=== PATIENT | male | born 1980 | race African-American/Black ===

== ENCOUNTER 2018-03-06 10:48 | Emergency (ER) | payer OTHER ==
--- NOTE | 2018-03-06 11:52 | RAD ---
LEFT SHOULDER 2 VIEWS: Date: 03/06/18 HISTORY: 38-year-old male with history of left shoulder pain for 2 days, radiating to chest. This is a 2 view examination, including AP and scapular Y view. FINDINGS: There is evidence for anterior subcoracoid dislocation of the left glenohumeral joint. IMPRESSION: Anterior subcoracoid dislocation of left glenohumeral joint. There could be a small chip-type fractur e off the inferior glenoid, which could suggest an associated Bankart injury, although this area over lies the humeral head and is somewhat partially obscured. POS: [facility]
[2018-03-06] MEDS ORDERED: Ondansetron HCl/PF 4 MG/2 ML Vial ONE (12:13)
[2018-03-06] MEDS ORDERED: Morphine 4 MG/ML VIAL ONE (12:15)
--- NOTE | 2018-03-06 13:45 | RAD ---
LEFT SHOULDER TWO VIEWS: INDICATIONS: Post reduction. COMPARISON: Exam from earlier same day. FINDINGS: Interval restored alignment of the left shoulder. There remains mild osseous irregularity of the sca pular glenoid. IMPRESSION: 1. Restored alignment of the left shoulder. 2. Osseous irregularity at the inferior scapula in the glenoid, indicating a minimally displaced fra cture, likely related to the recent dislocation. As necessary, CT examination may be performed for f urther evaluation. POS: [facility]
== END 2018-03-06 14:28 | disposition home or self-care (01) ==
LOC: ERS 10:48
DX: S43.015A Anterior dislocation of left humerus, initial encounter (principal); F31.9 Bipolar disorder, unspecified; F17.210 Nicotine dependence, cigarettes, uncomplicated; Z79.899 Other long term (current) drug therapy; X58.XXXA Exposure to other specified factors, initial encounter
CPT/HCPCS: 23650; 93005; 96374; 96375; J2270; J2405

== ENCOUNTER 2022-12-26 22:31 | Inpatient (IN) | payer OTHER ==
[2022-12-26] MEDS ORDERED: Midazolam HCl 5 mg/ml Vial ONE (22:34)
[2022-12-27 00:09] LABS: #Eosinphils 0.2 thou/uL (0.0-0.7); #Monocytes 0.7 thou/uL (0.11-0.59); #Neutrophils 5.4 thou/uL (1.40-6.50); %Basophils 0.3 % (0.0-1.0); %Eosinophils 2.9 % (0.0-10.0); %Lymphocytes 8.8 % (21.0-51.0); %Monocytes 9.5 % (0.0-10.0); %Neutrophils 78.2 % (42.0-75.0); Hematocrit 41.6 % (42.0-52.0); Hemoglobin 14.1 g/dL (14.0-18.0); Mean Corpuscular HGB CONC 33.9 g/dL (32.0-36.0); Mean Corpuscular Hemoglobin 33.7 pg (27.0-31.0); Mean Corpuscular Volume 99.5 fl (78.0-98.0); Mean Platelet Volume 10.3 fL (7.4-10.4); RBC Distribution Width 11.9 % (11.5-14.5); Red Blood Cell (RBC) Count 4.18 mill/uL (4.70-6.10); White Blood Cell (WBC) Count 6.9 10x3/uL (4.8-10.8)
[2022-12-27 00:20] LABS: Platelet Count 100 10x3/uL (130-400)
[2022-12-27] MEDS ORDERED: LORazepam 2 MG/ML SYR.(CARPUJECT) ONE (00:36)
[2022-12-27 00:38] LABS: ALT (SGPT) 17 U/L (8-55); AST (SGOT) 24 U/L (5-34); Albumin 3.6 g/dL (3.5-5.0); Alkaline Phosphatase 79 U/L (40-110); Anion Gap 18 mmol/L (10-20); BUN (Urea Nitrogen) 8 mg/dL (8.9-20.6); Bilirubin, Total 0.4 mg/dL (0.2-1.2); Calc. Creatinine Clearance 0 mL/min (70-130); Calcium 8.8 mg/dL (7.8-10.44); Carbon Dioxide 15 mmol/L (22-29); Chloride 106 mmol/L (98-107); Estimated GFR 105; Globulin 3.4 g/dL (2.4-3.5); Glucose 93 mg/dL (70-105); Magnesium 1.9 mg/dL (1.6-2.6); Potassium 3.9 mmol/L (3.5-5.1); Sodium 135 mmol/L (136-145)
[2022-12-27 00:51] LABS: Burr Cells SLIGHT = 2-5 cells HPF (0-1); Macrocytosis SLIGHT = 6-15 cells HPF (0-5); Ovalocytes SLIGHT = 2-5 cells HPF (0-1); Platelet Adequacy Comment Platelets Decreased; Tear Drops SLIGHT = 2-5 cells HPF (0-1)
[2022-12-27 01:42] LABS: Bacteria/HPF None Seen HPF (None Seen); Bilirubin Negative (Negative); Blood, Urine Trace (Negative); CAUTI Indications for Culture Alt mental st,lethar; Clarity Clear (Clear); Glucose, Urine (Dipstick) Normal (Negative); Ketone, Urine Trace mg/dL (Negative); Leukocyte Negative Leu/uL (Negative); Nitrite Negative (Negative); Protein, Urine (Dipstick) 30 mg/dL (Neg-Trace); RBC/HPF 0-3 HPF (0-3); Specific Gravity, Urine 1.016 (1.002-1.036); Squamous Epithelial 0-3 HPF (0-3); Urobilinogen Normal mg/dL (Less than 2); WBC/HPF 0-3 HPF (0-3)
[2022-12-27 01:43] LABS: Amphetamine Not Detected (NotDetected); Barbiturates Screen Not Detected (NotDetected); Benzodiazepine Screen Not Detected (NotDetected); Cocaine Metabolite Screen Detected (NotDetected); Methadone Not Detected (NotDetected); Methamphetamine Not Detected (NotDetected); Opiate Screen Not Detected (NotDetected); Oxycodone Screen Not Detected (NotDetected); Phencyclidine (PCP) Not Detected (NotDetected); THC/Cannabinoid Screen Detected (NotDetected); Tricyclic Screen Not Detected (NotDetected); Urine Culture Reflex No No
[2022-12-27] MEDS ORDERED: Acetaminophen 325 MG TAB PO PRN (07:31)
[2022-12-27] MEDS ORDERED: Lorazepam 2 MG/ML VIAL SLOW IVP PRN (07:31)
[2022-12-27] MEDS ORDERED: Ondansetron PF 4 MG/2 ML Vial IVP PRN (07:31)
[2022-12-27] MEDS ORDERED: Senokot S 8.6-50 MG TAB PO PRN (07:31)
[2022-12-27] MEDS ORDERED: HYDROcodone/Acetaminophen 5/325 mg Tablet PO PRN (07:31)
[2022-12-27] MEDS ORDERED: Pancrelipase DR 12,000 1 CAP PO PRN (08:04)
[2022-12-27] MEDS ORDERED: Famotidine 20 MG TAB PO SCH (09:00)
[2022-12-27] MEDS: Lactated Ringer's 1,000 ML IV SCH ×2 (09:23→21:08)
[2022-12-27 09:34] VITALS: BMI 28.5
[2022-12-27] MEDS: Multivitamins, Adult 10 ML, Folic Acid 1 MG, Thiamine HCl 100 MG in Dextrose 5 %-0.45 %... IV SCH (09:56)
[2022-12-27] MEDS: levETIRAcetam 500 MG/5 ML VIAL SLOW IVP SCH ×2 (12:39→23:35)
[2022-12-28 04:31] LABS: #Eosinphils 0.3 thou/uL (0.0-0.7); #Monocytes 0.7 thou/uL (0.11-0.59); #Neutrophils 2.2 thou/uL (1.40-6.50); %Basophils 0.3 % (0.0-1.0); %Eosinophils 5.5 % (0.0-10.0); %Lymphocytes 43.6 % (21.0-51.0); %Monocytes 11.9 % (0.0-10.0); %Neutrophils 38.5 % (42.0-75.0); Hematocrit 36.5 % (42.0-52.0); Hemoglobin 12.4 g/dL (14.0-18.0); Mean Corpuscular Hemoglobin 33.2 pg (27.0-31.0); Mean Corpuscular Volume 97.9 fl (78.0-98.0); Mean Platelet Volume 10.1 fL (7.4-10.4); Platelet Count 209 10x3/uL (130-400); RBC Distribution Width 11.8 % (11.5-14.5); Red Blood Cell (RBC) Count 3.73 mill/uL (4.70-6.10); White Blood Cell (WBC) Count 5.8 10x3/uL (4.8-10.8)
[2022-12-28 04:53] LABS: ALT (SGPT) 15 U/L (8-55); AST (SGOT) 18 U/L (5-34); Albumin 3.3 g/dL (3.5-5.0); Alkaline Phosphatase 67 U/L (40-110); Anion Gap 10 mmol/L (10-20); BUN (Urea Nitrogen) 6 mg/dL (8.9-20.6); Bilirubin, Total 0.6 mg/dL (0.2-1.2); Calc. Creatinine Clearance 147 mL/min (70-130); Calcium 8.2 mg/dL (7.8-10.44); Carbon Dioxide 24 mmol/L (22-29); Chloride 107 mmol/L (98-107); Estimated GFR 112; Globulin 2.6 g/dL (2.4-3.5); Glucose 97 mg/dL (70-105); Potassium 2.9 mmol/L (3.5-5.1); Protein, Total 5.9 g/dL (6.0-8.3); Sodium 138 mmol/L (136-145)
[2022-12-28] MEDS: Lactated Ringer's 1,000 ML IV SCH ×2 (05:55→20:17)
[2022-12-28] MEDS ORDERED: Electrolyte Replacement Protocol 1 EACH FS SCH (08:30)
[2022-12-28] MEDS ORDERED: Magnesium 2 GM/50 ML(in water) 2 GM in Premix Bag 1 BAG IVPB SCH (09:00)
[2022-12-28] MEDS: Thiamine 100 MG TAB PO SCH (09:41)
[2022-12-28] MEDS: Potassium Chloride 20 MEQ TAB PO SCH ×2 (09:41→13:39)
[2022-12-28] MEDS: Gabapentin 300 MG CAP PO SCH ×2 (09:42→20:04)
[2022-12-28] MEDS: Folic Acid 1 MG TAB PO SCH (09:42)
[2022-12-28] MEDS: Multivitamins, Adult 10 ML, Folic Acid 1 MG, Thiamine HCl 100 MG in Dextrose 5 %-0.45 %... IV SCH (09:43)
[2022-12-28] MEDS: levETIRAcetam 500 MG/5 ML VIAL SLOW IVP SCH (13:39)
[2022-12-28] MEDS: levETIRAcetam 500 MG TAB PO SCH (20:04)
[2022-12-29] MEDS: Lactated Ringer's 1,000 ML IV SCH ×2 (03:17→12:51)
[2022-12-29 04:27] LABS: Anion Gap 12 mmol/L (10-20); BUN (Urea Nitrogen) 5 mg/dL (8.9-20.6); Calc. Creatinine Clearance 156 mL/min (70-130); Calcium 8.1 mg/dL (7.8-10.44); Carbon Dioxide 20 mmol/L (22-29); Chloride 110 mmol/L (98-107); Estimated GFR 114; Glucose 95 mg/dL (70-105); Magnesium 1.9 mg/dL (1.6-2.6); Potassium 3.8 mmol/L (3.5-5.1); Sodium 138 mmol/L (136-145)
[2022-12-29] MEDS ORDERED: Magnesium 2 GM/50 ML(in water) 2 GM in Premix Bag 1 BAG IVPB SCH (08:00)
[2022-12-29] MEDS: Thiamine 100 MG TAB PO SCH (08:40)
[2022-12-29] MEDS: Folic Acid 1 MG TAB PO SCH (08:41)
[2022-12-29] MEDS: levETIRAcetam 500 MG TAB PO SCH (08:41)
[2022-12-29] MEDS: Gabapentin 300 MG CAP PO SCH (08:41)
[2022-12-29 15:39] VITALS: BP 140/72; TEMP 97.9
== END 2022-12-29 17:59 | DRG 100 ==
LOC: EEVIPCON 22:31 → ERS 22:31 → EEVIPCON 12-27 03:00 → 2NO 12-27 03:00
PROVIDERS: ADMIT Internal Medicine Geriatric Medicine; ATTEND Internal Medicine
PROC: 4A00X4Z Measurement of Central Nervous Electrical Activity, External Approach (ICD-10-PCS; principal; 2022-12-27)
DX: G40.909 Epilepsy, unspecified, not intractable, without status epilepticus (principal); I62.03 Nontraumatic chronic subdural hemorrhage; E87.20 Acidosis, unspecified; F31.9 Bipolar disorder, unspecified; F17.210 Nicotine dependence, cigarettes, uncomplicated; F12.10 Cannabis abuse, uncomplicated; F14.10 Cocaine abuse, uncomplicated; D69.6 Thrombocytopenia, unspecified; F10.20 Alcohol dependence, uncomplicated; K21.9 Gastro-esophageal reflux disease without esophagitis; F19.10 Other psychoactive substance abuse, uncomplicated; B19.20 Unspecified viral hepatitis C without hepatic coma; Z88.0 Allergy status to penicillin; Z79.899 Other long term (current) drug therapy; Z87.820 Personal history of traumatic brain injury
CPT/HCPCS: 36415; 36416; 70450; 70551; 80048; 80053; 80164; 80178; 80306; 81001; 83735; 85025; 93005; 95712; 95819; 95957; 96365; 96366; 96372; 96375; J1953; J2060; J2250; J3411; J3475; J3490; J7042; J7120